=== PATIENT | male | born 1970 | race Caucasian/White ===

== ENCOUNTER → 2022-05-22 15:19 | Outpatient (BNVA) | payer MEDICAID, SELFPAY | PROVIDERS: Visit Provider Internal Medicine | DX: B19.20 Unspecified viral hepatitis C without hepatic coma (principal); R76.8 Other specified abnormal immunological findings in serum; B18.2 Chronic viral hepatitis C | CPT/HCPCS: 80053; 82105; 85025; 86705; 86706; 87340; 87522; 87902 ==

== ENCOUNTER 2022-07-24 08:22 | Outpatient (CLI) | payer MEDICAID, SELFPAY ==
--- NOTE | 2022-07-24 08:45 | US_ITS ---
WS: [id number] RIGHT UPPER QUADRANT ULTRASOUND HISTORY: Possible hepatitis C. COMPARISON: None available. Liver: 14.3 cm in length. Normal size liver. There is a very coarse echotexture throughout the liver. No mass identified. Surface is very mildly irregular. No bile duct dilatation. Portal Vein: Normal hepatopetal flow with monophasic waveform. Gallbladder: Prior cholecystectomy. CBD: 0.6 cm Pancreas: Obscured by bowel gas. Portions of the body are identified and normal. Right kidney: 12.3 cm in length. Normal size and echogenicity. No hydronephrosis or mass. Aorta and IVC: Unremarkable abdominal aorta and IVC. No ascites. US/US liver [id number] IMPRESSION: 1. Normal size liver. 2. Heterogeneous echotexture suggesting early changes of cirrhosis. No mass. 3. Prior cholecystectomy.
[2022-07-30 22:54] LABS: Hepatitis C Genotype RNA 1a
== END 2022-07-24 08:23 | disposition home or self-care (01) ==
PROVIDERS: PCP Nurse Practitioner Family; Visit Provider Internal Medicine
DX: R76.8 Other specified abnormal immunological findings in serum (principal); Z90.49 Acquired absence of other specified parts of digestive tract
CPT/HCPCS: 36415; 76705; 87902